=== PATIENT | male | born 1940 | race Caucasian/White ===

== ENCOUNTER 2021-03-12 08:00 | Outpatient (CLI) | payer MEDICARE, OTHER ==
--- NOTE | 2021-03-24 14:37 | XRAY Report ---
PROCEDURE: Chest 2 View X-Ray INDICATIONS: COUGH TECHNIQUE: 2 view(s) of the chest. COMPARISON: None. FINDINGS: Surgical changes and devices: None. Lungs and pleura: No pleural effusions or pneumothorax. Lungs are clear. Mediastinum: Mediastinal contours are normal. Heart size is mildly prominent. Bones and chest wall: No suspicious bony abnormalities. Soft tissues appear unremarkable. IMPRESSION: No acute pulmonary process. Reviewed by: Isabel Palma MD on 03/12/2021 3:13 PM PDT Approved by: Isabel Palma MD on 03/12/2021 3:13 PM PDT Station ID: [id number]
== END 2021-03-12 23:59 | disposition home or self-care (01) ==
LOC: DI.S 08:00
PROVIDERS: ATTEND Physician Assistant
DX: R05 Cough (principal); Z20.822 Contact with and (suspected) exposure to COVID-19
CPT/HCPCS: 71046; U0004

== ENCOUNTER 2021-03-12 11:53 | Outpatient (CLI) | payer MEDICARE, OTHER | END 2021-03-12 11:54 | disposition critical access hospital (66) | LOC: EMS 11:53 | DX: R07.89 Other chest pain (principal); R06.09 Other forms of dyspnea; R50.9 Fever, unspecified | CPT/HCPCS: A0425; A0429 ==

== ENCOUNTER 2021-03-12 12:27 | Observation (INO) | payer MEDICARE, OTHER ==
--- OUTSIDE RECORDS SUMMARY | 2021-03-12 13:12 | EXTERNAL MEDICAL SUMMARY RPT | Continuity of Care Document ---
:1940 Demographics Phone Unavailable Preferred Language Unknown Marital Status Unknown Jainism Affiliation Unknown Race Unknown Ethnic Group Unknown Author Organization [place] Address [address] [phone] Phone Care Team Providers Name Role Phone PA-C Unavailable Unavailable Medications date description facility [id number] [facility] [id number] [facility] [id number] [facility] Problems date description facility [id number] Unspecified chest pain [facility] [id number] Other chest pain [facility] [id number] Cough [facility] [id number] COVID19 Testing [facility] [id number] CHEST 2 VIEW [facility] [id number] Acute chest pain [facility] Procedures date description facility [id number] EKG Office Complete [facility] Vital Signs date measurement value source 20210312 temperature_standard 98.4 F 20210312 temperature_metric 36.89 C 20210312 respiration_rate 18 /min 20210312 height_standard 68 in 20210312 height_metric 172.72 cm [id number] heart_rate 87 /min [id number] BP_systolic 128 mm[Hg] [id number] BP_diastolic 76 mm[Hg]
--- NOTE | 2021-03-12 13:15 | XRAY Report ---
PROCEDURE: Chest 1 View X-Ray INDICATIONS: Chest Pain TECHNIQUE: One view of the chest was acquired. COMPARISON: Chest x-ray 03/12/2021 FINDINGS: Surgical changes and devices: None. Lungs and pleura: No pleural effusions or pneumothorax. Lungs are clear. Mediastinum: Mediastinal contours appear normal. Heart size is enlarged. Bones and chest wall: No suspicious bony lesions. Overlying soft tissues appear unremarkable. IMPRESSION: No acute pulmonary process. Reviewed by: Isabel Palma MD on 03/12/2021 1:14 PM PDT Approved by: Isabel Palma MD on 03/12/2021 1:14 PM PDT Station ID: [id number]
[2021-03-12 13:24] LABS: BASOPHILS % (AUTO) 0.4 %; EOSINOPHILS # (AUTO) 0.4 10^3/uL (0.0-0.7); EOSINOPHILS % (AUTO) 3.8 %; HCT - HEMATOCRIT 39.9 % (42.0-52.0); HGB - HEMOGLOBIN 13.9 g/dL (14.0-18.0); LYMPHOCYTES # (AUTO) 1.2 10^3/uL (1.5-3.5); LYMPHOCYTES % (AUTO) 11.6 %; MEAN CORPUSCULAR HEMOGLOBIN 32.1 pg (27.0-31.0); MEAN CORPUSCULAR HGB CONC 34.8 g/dL (32.0-36.0); MEAN CORPUSCULAR VOLUME 92.1 fL (80.0-94.0); MEAN PLATELET VOLUME 9.5 fL (7.4-11.4); NEUTROPHILS # (AUTO) 7.4 10^3/uL (1.5-6.6); NEUTROPHILS % (AUTO) 73.7 %; PLT - PLATELET COUNT 308 10^3/uL (130-450); RED BLOOD COUNT 4.33 10^6/uL (4.70-6.10); RED CELL DISTRIBUTION WIDTH 12.9 % (12.0-15.0); WHITE BLOOD COUNT 10.1 x10^3/uL (4.8-10.8)
--- NOTE | 2021-03-12 13:39 | ED Physician Documentation ---
PD HPI CHEST PAIN - Stated complaint Stated Complaint: CP/SOA - Chief complaint Chief Complaint: Cardiac - History obtained from History obtained from: Patient - Additional information Additional information: 80-year-old gentleman who is generally very healthy, he has a history of reflux with Schatzki's ring on omeprazole, hypothyroidism, and recent diagnosis of Crohn's disease by colonoscopy although asymptomatic but on mesalamine for same. For the last 2 weeks she has been lethargic and fatigued. He states that every afternoon around 430 he starts to get chills and then pretty reliably runs a fever up to 101. He thinks he is pretty much had a fever every day for the last 2 weeks. Starting about 3 days ago he developed some mild exertional dyspnea. And he has had some bandlike pain across the lower chest that is worse with exertion but also worse with bending over. He has not traveled recently. He has not had any sick contacts. He does have night sweats. He has a runny nose and mild cough but he thinks those are in line with the pollen going around right now. Review of Systems Ten Systems: 10 systems reviewed and negative Constitutional: reports: Fever, Chills, Myalgias, Fatigue Nose: reports: Rhinorrhea / runny nose Throat: denies: Sore throat Cardiac: reports: Chest pain / pressure. denies: Palpitations Respiratory: reports: Dyspnea, Cough PD PAST MEDICAL HISTORY - Past Medical History Past Medical History: Yes Cardiovascular: None Respiratory: None Endocrine/Autoimmune: None GI: GERD : None HEENT: None Psych: None Musculoskeletal: None Derm: None - Past Surgical History Past Surgical History: Yes General: Other Ortho: Knee replacement, Other HEENT: Cataracts, Tonsil/Adenoidectomy - Present Medications Home Medications: Ambulatory Orders Medication Instructions Recorded Confirmed Omeprazole [PriLOSEC] 10 mg PO DAILY 08/28/14 03/12/21 Levothyroxine [Synthroid] 50 mcg PO DAILY 03/12/21 03/12/21 Mesalamine [Lialda] 2.4 gm PO BID 03/12/21 03/12/21 - Allergies Allergies/Adverse Reactions: Allergies Allergy/AdvReac Type Severity Reaction Status Date / Time No Known Drug Allergies Allergy Verified 03/12/21 12:37 - Social History Does the pt smoke?: No Smoking Status: Never smoker Does the pt drink ETOH?: No Does the pt have substance abuse?: No - Immunizations Immunizations are current?: Yes PD ED PE NORMAL - Vitals Vital signs reviewed: Yes - General General: Alert and oriented X 3, No acute distress - HEENT HEENT: PERRL, EOMI - Neck Neck: Supple, no meningeal sign, No bony TTP - Cardiac Cardiac: RRR, No murmur - Respiratory Respiratory: No respiratory distress, Clear bilaterally - Abdomen Abdomen: Non tender - Back Back: No CVA TTP, No spinal TTP - Derm Derm: Normal color, Warm and dry - Extremities Extremities: No edema, No calf tenderness / cord - Neuro Neuro: Alert and oriented X 3, Normal speech Results - Vitals Vitals: Vital Signs - 24 hr 03/12/21 03/12/21 03/12/21 12:34 12:55 13:07 Temperature 37.2 C Heart Rate 92 82 90 Respiratory 16 21 24 Rate Blood Pressure 132/80 H 112/73 O2 Saturation 96 95 97 03/12/21 03/12/21 03/12/21 13:30 14:06 14:14 Temperature 36.8 C 36.7 C Heart Rate 85 82 80 Respiratory 16 22 21 Rate Blood Pressure 128/74 145/79 H 145/79 H O2 Saturation 97 97 96 03/12/21 03/12/21 03/12/21 14:30 14:46 15:00 Temperature 36.7 C Heart Rate 77 75 80 Respiratory 22 23 20 Rate Blood Pressure 129/76 129/76 127/84 H O2 Saturation 95 93 94 03/12/21 03/12/21 03/12/21 15:30 15:51 16:23 Temperature Heart Rate 74 77 75 Respiratory 16 19 23 Rate Blood Pressure 132/83 H 132/87 H 132/74 H O2 Saturation 96 95 96 Oxygen O2 Source Room air - EKG (time done) 1230 Rate: Rate (enter#) (86) Rhythm: Sinus tachycardia (w pac) [place]: Normal Intervals: Normal [place] QRS: Normal Ischemia: Normal ST segments Computer interpretation: Agree with computer - Labs Labs: Laboratory Tests 03/12/21 03/12/21 03/12/21 13:07 13:07 13:07 WBC 10.1 RBC 4.33 L Hgb 13.9 L Hct 39.9 L MCV 92.1 MCH 32.1 H MCHC 34.8 RDW 12.9 Plt Count 308 MPV 9.5 Neut # (Auto) 7.4 H Lymph # (Auto) 1.2 L [place] # (Auto) 1.0 Eos # (Auto) 0.4 Baso # (Auto) 0.0 Absolute Nucleated RBC 0.00 Nucleated RBC % 0.0 ESR Sodium 138 Potassium 3.8 Chloride 101 Carbon Dioxide 26 Anion Gap 11.0 BUN 15 Creatinine 0.9 Estimated GFR (MDRD) 81 L Glucose 119 H Lactic Acid Calcium 8.7 Total Bilirubin 1.3 H AST 15 ALT 26 Alkaline Phosphatase 75 Troponin I High Sens 60.8 H* C-Reactive Protein Total Protein 6.9 Albumin 3.8 Globulin 3.1 Albumin/Globulin Ratio 1.2 Lipase 22 Urine Color Urine Clarity Urine pH Ur Specific [place] Urine Protein Urine Glucose (UA) Urine Ketones Urine Occult Blood Urine Nitrite Urine Bilirubin Urine Urobilinogen Ur Leukocyte Esterase Urine RBC Urine WBC Ur Epithelial Cells Ur Squamous Epith Cells Urine Bacteria Urine Culture Comments Nasal Adenovirus (PCR) Nasal B. parapertussis DNA (PCR) Nasal Coronavir 229E PCR Nasal Coronavir HKU1 PCR Nasal Coronavir NL63 PCR Nasal Coronavir OC43 PCR Nasal Enterovir/Rhinovir PCR Nasal Influenza B PCR Nasal Influenza A PCR Nasal Parainfluen 1 PCR Nasal Parainfluen 2 PCR Nasal Parainfluen 3 PCR Nasal Parainfluen 4 PCR Nasal RSV (PCR) Nasal B.pertussis DNA PCR Nasal C.pneumoniae (PCR) Kp Human Metapneumo PCR Nasal M.pneumoniae (PCR) Nasal SARS-CoV-2 (PCR) 03/12/21 03/12/21 03/12/21 13:07 13:07 13:07 WBC RBC Hgb Hct MCV MCH MCHC RDW Plt Count MPV Neut # (Auto) Lymph # (Auto) [place] # (Auto) Eos # (Auto) Baso # (Auto) Absolute Nucleated RBC Nucleated RBC % ESR 23 H Sodium Potassium Chloride Carbon Dioxide Anion Gap BUN Creatinine Estimated GFR (MDRD) Glucose Lactic Acid 0.9 Calcium Total Bilirubin AST ALT Alkaline Phosphatase Troponin I High Sens C-Reactive Protein 13.2 H Total Protein Albumin Globulin Albumin/Globulin Ratio Lipase Urine Color Urine Clarity Urine pH Ur Specific [place] Urine Protein Urine Glucose (UA) Urine Ketones Urine Occult Blood Urine Nitrite Urine Bilirubin Urine Urobilinogen Ur Leukocyte Esterase Urine RBC Urine WBC Ur Epithelial Cells Ur Squamous Epith Cells Urine Bacteria Urine Culture Comments Nasal Adenovirus (PCR) Nasal B. parapertussis DNA (PCR) Nasal Coronavir 229E PCR Nasal Coronavir HKU1 PCR Nasal Coronavir NL63 PCR Nasal Coronavir OC43 PCR Nasal Enterovir/Rhinovir PCR Nasal Influenza B PCR Nasal Influenza A PCR Nasal Parainfluen 1 PCR Nasal Parainfluen 2 PCR Nasal Parainfluen 3 PCR Nasal Parainfluen 4 PCR Nasal RSV (PCR) Nasal B.pertussis DNA PCR Nasal C.pneumoniae (PCR) Kp Human Metapneumo PCR Nasal M.pneumoniae (PCR) Nasal SARS-CoV-2 (PCR) 03/12/21 03/12/21 03/12/21 13:42 13:42 15:02 WBC RBC Hgb Hct MCV MCH MCHC RDW Plt Count MPV Neut # (Auto) Lymph # (Auto) [place] # (Auto) Eos # (Auto) Baso # (Auto) Absolute Nucleated RBC Nucleated RBC % ESR Sodium Potassium Chloride Carbon Dioxide Anion Gap BUN Creatinine Estimated GFR (MDRD) Glucose Lactic Acid Calcium Total Bilirubin AST ALT Alkaline Phosphatase Troponin I High Sens 57.5 H* C-Reactive Protein Total Protein Albumin Globulin Albumin/Globulin Ratio Lipase Urine Color YELLOW Urine Clarity CLEAR Urine pH 6.0 Ur Specific [place] 1.010 Urine Protein NEGATIVE Urine Glucose (UA) NEGATIVE Urine Ketones NEGATIVE Urine Occult Blood NEGATIVE Urine Nitrite NEGATIVE Urine Bilirubin NEGATIVE Urine Urobilinogen 0.2 (NORMAL) Ur Leukocyte Esterase NEGATIVE Urine RBC None Seen Urine WBC 0-3 Ur Epithelial Cells RARE Transitional Ur Squamous Epith Cells NONE SEEN Urine Bacteria Rare Urine Culture Comments NOT INDICATED Nasal Adenovirus (PCR) NOT DETECTED Nasal B. parapertussis DNA (PCR) NOT DETECTED Nasal Coronavir 229E PCR NOT DETECTED Nasal Coronavir HKU1 PCR NOT DETECTED Nasal Coronavir NL63 PCR NOT DETECTED Nasal Coronavir OC43 PCR NOT DETECTED Nasal Enterovir/Rhinovir PCR NOT DETECTED Nasal Influenza B PCR NOT DETECTED Nasal Influenza A PCR NOT DETECTED Nasal Parainfluen 1 PCR NOT DETECTED Nasal Parainfluen 2 PCR NOT DETECTED Nasal Parainfluen 3 PCR NOT DETECTED Nasal Parainfluen 4 PCR NOT DETECTED Nasal RSV (PCR) NOT DETECTED Nasal B.pertussis DNA PCR NOT DETECTED Nasal C.pneumoniae (PCR) NOT DETECTED Kp Human Metapneumo PCR NOT DETECTED Nasal M.pneumoniae (PCR) NOT DETECTED Nasal SARS-CoV-2 (PCR) NOT DETECTED - Rads (name of study) 1v cxr Radiology: EMP read contemporaneously (NAD) CT chest abdomen and pelvis Radiology: EMP read contemporaneously (CAD, abdominal wall hernias without evidence of complication) PD MEDICAL DECISION MAKING - ED course ED course: This 80-year-old gentleman has 2 weeks worth of daily low-grade fevers and some other nonspecific symptoms but the last few days has had atypical chest pain. His EKG is nonischemic but his troponin is elevated, on the second check 2 hours later was about the same, slightly down. Given the fevers of unknown origin a CT of the chest abdomen pelvis was done with above findings. Unclear if this record represents primary cardiac insult versus Type II ischemia although he does not seem to ill. Dr. Valenciasef agrees to observe and stress tomorrow. Departure - Departure Disposition: ED Place in Observation Clinical Impression: FUO (fever of unknown origin), Elevated troponin CAD (coronary artery disease) Qualifiers: Coronary Disease-Associated Artery/Lesion type: [place] artery [place] vs. transplanted heart: [place] heart Associated angina: without angina Qualified Code(s): I25.10 - Atherosclerotic heart disease of [place] coronary artery without angina pectoris Chest pain Qualifiers: Chest pain type: unspecified Qualified Code(s): R07.9 - Chest pain, unspecified Condition: Fair
[2021-03-12 13:41] LABS: ALBUMIN 3.8 g/dL (3.2-5.5); ALBUMIN/GLOBULIN RATIO 1.2 (1.0-2.2); BILIRUBIN,TOTAL 1.3 mg/dL (0.2-1.0); CALCIUM 8.7 mg/dL (8.5-10.3); CREATININE 0.9 mg/dL (0.6-1.2); POTASSIUM 3.8 mmol/L (3.5-5.0); TOTAL PROTEIN 6.9 g/dL (6.7-8.2)
[2021-03-12] MEDS ORDERED: IOPAMIDOL-300 100 ML VIAL ONE (13:42)
[2021-03-12 13:50] LABS: BILIRUBIN,URINE NEGATIVE (NEGATIVE); GLUCOSE, URINE (UA) NEGATIVE (NEGATIVE); KETONES,URINE (UA) NEGATIVE (NEGATIVE); LEUKOCYTE ESTERASE, URINE NEGATIVE (NEGATIVE); NITRITE,URINE NEGATIVE (NEGATIVE); OCCULT BLOOD,URINE NEGATIVE (NEGATIVE); PROTEIN,URINE NEGATIVE (NEGATIVE); UROBILINOGEN,URINE 0.2 (NORMAL) E.U./dL (NORMAL)
[2021-03-12 13:52] LABS: CLARITY,URINE CLEAR (CLEAR)
[2021-03-12 13:58] LABS: BACTERIA,URINE Rare /HPF (None Seen); EPITHELIAL CELLS,UR RARE Transitional /HPF (<= Few); RBC,URINE None Seen /HPF (0-5); SQUAMOUS EPITHELIAL CELL,UR NONE SEEN (<= Few); WBC,URINE 0-3 /HPF (0-3)
[2021-03-12] MEDS ORDERED: IOPAMIDOL-300 100 ML VIAL IVP ONE (14:00)
--- NOTE | 2021-03-12 14:15 | CT Report ---
PROCEDURE: Abdomen/Pelvis W INDICATIONS: FUO IV only CONTRAST: IV CONTRAST: Isovue 300 ml: 100 PO CONTRAST: *NO PO CONTRAST TECHNIQUE: After the administration of IV contrast, 5 mm thick sections acquired from the diaphragms to the symp hysis. 5 mm thick coronal and sagittal reformats were acquired. For radiation dose reduction, the f ollowing was used: automated exposure control, adjustment of mA and/or kV according to patient size. COMPARISON: None. FINDINGS: Image quality: Excellent. ABDOMEN: Lung bases: Mild bibasilar dependent scarring versus atelectasis is present. Heart size is normal. Solid organs: Liver and spleen are normal in size and enhancement. Gallbladder is within normal godfrey its Biliary system is non dilated. Pancreas enhances normally. No adrenal nodules. Kidneys demons trate normal size and enhancement, without hydronephrosis. Peritoneum and bowel: Bowel loops demonstrate normal wall thickness and caliber. Normal appendix. N o free fluid or air. Nodes and vessels: No retroperitoneal or mesenteric adenopathy by size criteria. Aorta and inferior vena cava are normal in size. Miscellaneous: Right anterior abdominal wall hernia containing the anterior mesenteric wall of mid tr ansverse colon measuring 27 mm diameter. Left anterior abdominal wall hernia containing a loop of sma ll bowel, measuring roughly 40 mm diameter. Supraumbilical hernia containing mesenteric fat as well a s the antimesenteric wall of loops of small bowel measuring roughly 35 mm diameter. There is no evide nce of associated bowel strangulation, nor obstruction. PELVIS: Genitourinary: Bladder wall thickness is normal. Miscellaneous: No inguinal hernias or adenopathy. Bones: No suspicious bony lesions. No vertebral body compression fractures. IMPRESSION: 1. Bowel-containing anterior abdominal wall hernias with no evidence of associated strangulation, nor obstruction. 2. Normal appendix. Reviewed by: Kath Brantley MD on 03/12/2021 2:13 PM PDT Approved by: Kath Brantley MD on 03/12/2021 2:13 PM PDT Station ID: [id number]
--- NOTE | 2021-03-12 14:16 | CT Report ---
PROCEDURE: CHEST W INDICATIONS: FUO, CONTRAST: IV CONTRAST: Isovue 300 ml: 100 PO CONTRAST: *NO PO CONTRAST TECHNIQUE: After the administration of intravenous contrast, 5 mm thick sections acquired from the pulmonary api lucian to the posterior costophrenic angles. 7 mm thick coronal MIP reformats were acquired. For radia tion dose reduction, the following was used: automated exposure control, adjustment of mA and/or kV according to patient size. COMPARISON: Chest x-ray dated 03/12/2021 FINDINGS: Image quality: Excellent. Lungs and pleura: No acute air space opacities. Mild dependent bibasilar scarring versus atelectasi s. No pleural effusions or pneumothorax. Central and peripheral airways are patent and normal in madhav iber. Mediastinum: Heart size is normal. Severe apical scarring calcification of the coronary vasculature. No pericardial effusion. No mediastinal or hilar adenopathy by size criteria. Thoracic aorta and c entral pulmonary arteries are normal in size. Esophagus is normal in caliber. No hiatal hernia. Bones and chest wall: No suspicious bony lesions. No vertebral body compression fractures. No axil juju or supraclavicular adenopathy by size criteria. Thyroid gland is grossly unremarkable. Abdomen: Visualized upper abdominal solid organs appear normal. Upper abdominal bowel loops are nor mal in caliber. IMPRESSION: 1. No acute process. 2. Coronary artery disease. Reviewed by: Kath Brantley MD on 03/12/2021 2:15 PM PDT Approved by: Kath Brantley MD on 03/12/2021 2:15 PM PDT Station ID: [id number]
[2021-03-12 14:44] LABS: B. PARAPERTUSSIS- RESP PCR PAN NOT DETECTED; B. PERTUSSIS- RESP PCR PANEL NOT DETECTED; C. PNEUMONIAE- RESP PCR PANEL NOT DETECTED; CORONAVIRUS 229E-RESP PCR NOT DETECTED; CORONAVIRUS HKU1-RESP PCR NOT DETECTED; CORONAVIRUS NL63-RESP PCR NOT DETECTED; CORONAVIRUS OC43-RESP PCR NOT DETECTED; HUMAN METAPNEUMOVIRUS NOT DETECTED; INFLUENZA A- RESP PCR PANEL NOT DETECTED; INFLUENZA B - RESP PCR PANEL NOT DETECTED; M. PNEUMONIAE- RESP PCR PANEL NOT DETECTED; PARAINFLUENZA VIRUS 1 NOT DETECTED; PARAINFLUENZA VIRUS 2 NOT DETECTED; PARAINFLUENZA VIRUS 3 NOT DETECTED; PARAINFLUENZA VIRUS 4 NOT DETECTED; RHINOVIRUS/ENTEROVIRUS NOT DETECTED; RSV- RESP PCR PANEL NOT DETECTED; SARS-CoV-2 -RESP PCR PANEL NOT DETECTED
[2021-03-12] MEDS ORDERED: ASPIRIN EC 325 MG TABLET PO STA (15:02)
[2021-03-12] MEDS ORDERED: ONDANSETRON 4 MG/2 ML VIAL IVP PRN (17:01)
[2021-03-12] MEDS ORDERED: SODIUM CHLORIDE FLUSH 0.9% 10 ML SYRINGE IVP PRN (17:01)
[2021-03-12] MEDS ORDERED: MORPHINE 2 MG/ML CARPUJECT IVP PRN (17:01)
[2021-03-12] MEDS ORDERED: ACETAMINOPHEN 325 MG TABLET PO PRN (17:01)
[2021-03-12] MEDS ORDERED: OMEPRAZOLE 10 MG PO SCH (17:14)
--- OUTSIDE RECORDS SUMMARY | 2021-03-12 17:17 | EXTERNAL MEDICAL SUMMARY RPT | Continuity of Care Document ---
:1940 Demographics Phone Unavailable Preferred Language Unknown Marital Status Unknown Baptism Affiliation Unknown Race Unknown Ethnic Group Unknown Author Organization [place] Address [address] [phone] Phone Care Team Providers Name Role Phone PA-C Unavailable Unavailable Medications date description facility [id number] [facility] [id number] [facility] [phone] [facility] Problems date description facility [id number] Unspecified chest pain [facility] [phone] Other chest pain [facility] [id number] Cough [facility] [phone] COVID19 Testing [facility] [id number] CHEST 2 VIEW [facility] [phone] Acute chest pain [facility] Procedures date description facility [id number] EKG Office Complete [facility] Vital Signs date measurement value source 20210312 temperature_standard 98.4 F 20210312 temperature_metric 36.89 C 20210312 respiration_rate 18 /min 20210312 height_standard 68 in 20210312 height_metric 172.72 cm [id number] heart_rate 87 /min [id number] BP_systolic 128 mm[Hg] [id number] BP_diastolic 76 mm[Hg]
--- NOTE | 2021-03-12 17:27 | HISTORY & PHYSICAL EXAMINATION ---
Chief Complaint - Chief Complaint Chief Complaint: chest pain History of Present Illness - Admitted From Admitted From:: ER - History Obtained From Records Reviewed: [facility] History obtained from: pt - History of Present Illness HPI Comment/Other: This is a 80-year-old male with a past medical history significant for GERD with Schatzki's ring, hypothyroidismwhoand and recent diagnosis of Crohn's disease although he was asymptomatic but on mesalamine otherwise pt is generally healthy who present ER complain of chest pain. Patient was sent from [facility]. pt complain of chest pain for 2 and half days. pt report his chest pain located at bilateral low rib cage. pt is dull sensation at 2/10 pain scale. pt also report he feel shortness of breath when he had chest pain. He denies other location chest pain, denies nausea, vomiting, diaphoresis. pt report his chest pain last for 2 and half day with intermittent frequency. Pt also report in the last two weeks, almost every afternoon around 430 he starts to get chills and then had fever up to 101. But today he did not have in ER. After fever at afternoon, he became night sweats. He "honestly report to you, Dr. Krause, my GI doctor asked me to take 4 mesalamine but actually I only take 2 pills, because I do not want to take too much medications." Lab test in ER show pt had slight elevated troponin at 60 then tread down to 57. EKG reveals Sinus rhythm without ST variation. CXR is unremarkable. CT of chest reveals No acute process, coronary artery disease. CT of abdomen reveals Anterior abdominal wall hernia with no evidence of associated strangulation or obstruction. Medical team was consulted focus on pt's chest pain evaluation. Discussed the care goal with the patient, patient requests full code. History - Past Medical History Cardiovascular: reports: None Respiratory: reports: None Endocrine/Autoimmune: reports: None GI: reports: GERD : reports: None HEENT: reports: None Psych: reports: None Musculoskeletal: reports: None Derm: reports: None MRSA Hx?: No - Past Surgical History General: reports: Other Ortho: reports: Knee replacement, Other HEENT: reports: Cataracts, Tonsil/Adenoidectomy - Family & Social History Family History: Mother: , Father: Family History Comment/Other: Report his father from stroke at age 63. His mother is a heavy cigarette smoker and severe COPD and from heart attack at age 70 Social History Notes: Patient denies history of cigarette smoking, he report social drinking without causing problem, denies drug issue. He is living with his at [place]. Meds/Allgy - Home Medications Home Medications: Ambulatory Orders Medication Instructions Recorded Confirmed Omeprazole [PriLOSEC] 10 mg PO DAILY 08/28/14 03/12/21 Levothyroxine [Synthroid] 50 mcg PO DAILY 03/12/21 03/12/21 Mesalamine [Lialda] 2.4 gm PO BID 03/12/21 03/12/21 - Allergies Allergies/Adverse Reactions: Allergies Allergy/AdvReac Type Severity Reaction Status Date / Time No Known Drug Allergies Allergy Verified 03/12/21 12:37 Review of Systems - Constitutional Constitutional: reports: Fever, Chills, Night sweats. denies: Malaise, Weakness, Poor appetite, Diaphoresis - Eyes Eyes: denies: Pain, Blurred vision, Field loss, Vision loss - Ears, Nose & Throat Ears, Nose & Throat: denies: Ear pain, Tinnitus, Nosebleeds - Cardiovascular Cariovascular: reports: Chest pain, Exertional dyspnea. denies: Irregular heart rate, Palpitations, Edema, Lightheadedness, Syncope - Respiratory Respiratory: reports: SOB with exertion. denies: Cough, Sputum production, Wheezing, Snoring, Hemoptysis, SOB at rest - Gastrointestinal Gastrointestinal: denies: Abdominal pain, Constipation, Diarrhea, Rectal bleeding, Black stools, Bloody stools, Nausea, Vomiting - Genitourinary Genitourinary: denies: Dysuria, Urgency, Incontinence - Musculoskeletal Musculoskeletal: denies: Muscle aches, Limited range of motion, Muscle weakness - Integumentary Integumentary: denies: Rash, Lesions, Lumps - Neurological Neurological: denies: General weakness, Focal weakness, Headache, Dizziness, Numbness, Pre-existing deficit, Abnormal gait, Seizures, Incoordination, Slurred speech - Psychiatric Psychiatric: denies: Depression, Suicidal - Endocrine Endocrine: denies: Polyuria - Hematologic/Lymphatic Hematologic/Lymphatic: denies: Anemia, Blood clots Prior Level of Functionality: Patient is totally function independent Exam - Vital Signs Vital Signs: Vital Signs x48h Temp Pulse Resp BP Pulse Ox 03/12/21 17:00 36.6 C 83 18 125/73 96 03/12/21 16:30 36.6 C 85 16 125/66 95 03/12/21 16:23 75 23 132/74 H 96 03/12/21 15:51 77 19 132/87 H 95 03/12/21 15:30 74 16 132/83 H 96 03/12/21 15:00 80 20 127/84 H 94 03/12/21 14:46 75 23 129/76 93 03/12/21 14:30 36.7 C 77 22 129/76 95 03/12/21 14:14 80 21 145/79 H 96 03/12/21 14:06 36.7 C 82 22 145/79 H 97 03/12/21 13:30 36.8 C 85 16 128/74 97 03/12/21 13:07 90 24 112/73 97 03/12/21 12:55 82 21 95 03/12/21 12:34 37.2 C 92 16 132/80 H 96 - Physical Exam General Appearance: positive: No acute distress, Alert. negative: Lethargic Eyes Bilateral: positive: Normal inspection, PERRL, No lid inflammation ENT: positive: ENT inspection nml, No signs of dehydration. negative: Purulent nasal drainage Neck: positive: Nml inspection, Trachea midline. negative: Thyromegaly, Tracheal deviation Respiratory: positive: Chest non-tender, No respiratory distress. negative: Wheezes, Rales, Rhonchi Cardiovascular: positive: Regular rate & rhythm, No murmur. negative: Tac hycardia, Bradycardia, Systolic murmur, Diastolic murmur Peripheral Pulses: positive: 2+ Abdomen: positive: Non-tender, Nml bowel sounds, No distention. negative: Tenderness Back: positive: Nml inspection Skin: positive: Color nml, Warm, Dry. negative: Cyanosis, Diaphoresis Extremities: positive: Non-tender, Full ROM, Nml appearance. negative: Calf tenderness Neurologic/Psychiatric: positive: Oriented x3, Motor nml, Sensation nml, Mood/affect nml. negative: Weakness, Sensory loss, Facial droop, Slurred/abnml speech, Depressed mood/affect Sepsis Event Note (H) - Evaluation Current Stage of Sepsis: Ruled out Conclusion/Plan - Problem List (1) Chest pain Conclusion/Plan: Patient reported he had intermittent bilateral chest rib cage chest pain for 2- 1/2 days associated with shortness of breathing. pt had slight elevated troponin, repeated troponin is slight reduced. pt report he has no cardiac hx and first time he had chest pain. Patient was already 325 mg aspirin in the ER. we will check serial troponin, daily aspirin 81 mg now, check lipid panel, Morphine and nitro SL PRN, and plan to have stress test for pt on tomorrow, continue tele monitor pt. Qualifiers: Chest pain type: unspecified Qualified Code(s): R07.9 - Chest pain, unspecified (2) FUO (fever of unknown origin) Conclusion/Plan: pt has no fever on today, CT of chest and abdomen/pelvis, UA, CXR fail to reveal infection resource. one possible etiology from his recently diagnosis of Crohn's disease and pt had elevated ESR and CRP as well or less likely from neoplasm. pt had normal WBC and had no fever on today. Covid 19 is negative as well, and Patient is hemodynamically stable. we will vital signal closely monitor pt (3) Crohn disease Conclusion/Plan: pt was recently diagnosis with Crohn disease and pt was already given mesalamine. pt denies abdominal pain, nausea or vomiting or diarrhea or GI bleeding. we will resume pt home meds, advise pt closely followup with his GI, specially for his FUO. (4) Hypothyroidism Conclusion/Plan: will check TSH and resume home synthroid. (5) GERD (gastroesophageal reflux disease) Conclusion/Plan: stable, will resume home PPI. - Lab Results Fish Bones: 03/12/21 13:07 03/12/21 13:07 Core Measures - Anticipated LOS I expect patient to be DC'd or transferred within 96 hours.: Yes - DVT/VTE - Prophylaxis VTE/DVT Device ordered at admit?: Yes VTE/DVT Prophylaxis med ordered at admit?: Yes
[2021-03-12] MEDS ORDERED: NITROGLYCERIN SL 0.4 MG TABLET SL PRN (18:00)
[2021-03-12] MEDS: MESALAMINE 1.2 GM PO SCH (22:06)
[2021-03-13 04:58] LABS: BASOPHILS # (AUTO) 0.1 10^3/uL (0.0-0.1); EOSINOPHILS # (AUTO) 0.6 10^3/uL (0.0-0.7); EOSINOPHILS % (AUTO) 7.9 %; HCT - HEMATOCRIT 38.7 % (42.0-52.0); HGB - HEMOGLOBIN 13.1 g/dL (14.0-18.0); LYMPHOCYTES # (AUTO) 1.3 10^3/uL (1.5-3.5); LYMPHOCYTES % (AUTO) 17.8 %; MEAN CORPUSCULAR HEMOGLOBIN 31.3 pg (27.0-31.0); MEAN CORPUSCULAR HGB CONC 33.9 g/dL (32.0-36.0); MEAN CORPUSCULAR VOLUME 92.6 fL (80.0-94.0); MEAN PLATELET VOLUME 9.4 fL (7.4-11.4); MONOCYTES # (AUTO) 0.9 10^3/uL (0.0-1.0); MONOCYTES % (AUTO) 12.6 %; NEUTROPHILS # (AUTO) 4.4 10^3/uL (1.5-6.6); NEUTROPHILS % (AUTO) 60.2 %; PLT - PLATELET COUNT 296 10^3/uL (130-450); RED BLOOD COUNT 4.18 10^6/uL (4.70-6.10); RED CELL DISTRIBUTION WIDTH 12.9 % (12.0-15.0); WHITE BLOOD COUNT 7.4 x10^3/uL (4.8-10.8)
[2021-03-13] MEDS: SODIUM CHLORIDE FLUSH 0.9% 10 ML SYRINGE IVP SCH ×2 (05:18→08:04)
[2021-03-13 05:23] LABS: BUN - BLOOD UREA NITROGEN 15 mg/dL (6-20); CALCIUM 8.7 mg/dL (8.5-10.3); CARBON DIOXIDE - CO2 25 mmol/L (21-32); CHLORIDE 105 mmol/L (101-111); CHOL/HDL RATIO 5.8 (<5.0); CHOLESTEROL 144 mg/dL; CREATININE 0.8 mg/dL (0.6-1.2); GFR - MDRD 93 (>89); GLUCOSE 119 mg/dL (70-100); HDL CHOLESTEROL 25 mg/dL; LDL CHOLESTEROL,CALCULATED 98 mg/dL; LDL/HDL RATIO 3.9 (<3.6); POTASSIUM 4.1 mmol/L (3.5-5.0); SODIUM 139 mmol/L (135-145); TRIGLYCERIDES 106 mg/dL; VLDL CHOLESTEROL 21 mg/dL
[2021-03-13] MEDS ORDERED: LEVOTHYROXINE 25 MCG TABLET PO SCH (07:00)
--- NOTE | 2021-03-13 07:26 | PHARMACY PROGRESS NOTE ---
- Best Possible Medication History Admit Date and Time: 03/12/21 1701 Processed by: Nursing Medication History completed: Yes As the person ultimately responsible for medication therapy, providers are able to order a medication from an existing home medication list in [facility] via the "Reconcile Routine" prior to Confirmation of that medication by learning support specialist. Such practice is discouraged except when the physician, in their clinical judgment, deems that a medical need exists for a medication without regard to previous use.
[2021-03-13] MEDS: MESALAMINE 1.2 GM PO SCH (08:04)
[2021-03-13] MEDS ORDERED: PANTOPRAZOLE 40 MG TABLET PO SCH (09:00)
[2021-03-13] MEDS ORDERED: ENOXAPARIN 40 MG/0.4 ML SYRINGE SUBQ SCH (09:00)
[2021-03-13] MEDS ORDERED: ASPIRIN CHEW 81 MG TABLET PO SCH (09:00)
[2021-03-13 15:35] VITALS: BP 118/68
--- NOTE | 2021-03-13 16:20 | Nuclear Medicine Report ---
PROCEDURE: Rest and pharmacological stress myocardial perfusion SPECT with gated imaging and ejection fraction INDICATIONS: chest pain RADIOPHARMACEUTICAL: 12.2 mCi Tc-99m Myoview IV at rest and 43.0 mCi Tc-99m Myoview IV at peak exerc ise. [id number] was performed. TECHNIQUE: Radiopharmaceutical was injected at peak stress test, and also at rest. SPECT images wer e obtained. SPECT myocardial perfusion images were displayed in short axis, horizontal long axis, an d vertical long axis views. Gated images were reviewed using AutoQUANT software. COMPARISON: None available. FINDINGS: Raw data: There is good myocardial labeling by radiotracer. No significant motion artifacts. Lung- to-heart ratio is 0.34 (normal is less than 0.46 for tetrafosmin tracer). Left ventricle function: Gated images demonstrate normal left ventricle wall thickening. No segment al wall motion abnormality. No transient ischemic dilation; TID is 1.03 (normal less than 1.30). Th e left ventricle resting end-diastolic volume is normal. Left ventricle stress ejection fraction is 59%; normal values are above 45%. Myocardial perfusion: There is normal distribution of activity in the left and right ventricular sweetie cardium. No fixed or reversible perfusion defects. IMPRESSION: 1. Normal myocardial perfusion images. No perfusion defect to suggest myocardial ischemia or infarct. 2. Normal left ventricular volume and systolic function. 3. Please correlate with stress EKG result. PQRS ATTESTATIONS: Measure 322 - Is this imaging test primarily performed on a low-risk surgery patient for preoperative evaluation within 30 days preceding their low-risk non-cardiac surgery? Low-risk surgery is defined as cardiac or myocardial infarction less than 1%, including (but not limited to) endoscopic pr ocedures, superficial procedures, cataract surgery, and excisional breast surgery: Answer: No Measure 323 - Is this imaging test performed primarily for the monitoring of an asymptomatic patient who had percutaneous coronary intervention on the visit date or within 2 years of the visit date? An swer: No Measure 324 - Is this imaging test performed primarily for the initial detection and risk assessment on an asymptomatic, low coronary heart disease patient? Low CHD risk definition = clinicians should consider the maximum number of available patient factors used to estimate risk based on [place] (A TP III criteria), typically age, gender, diabetes, smoking status, and use of blood pressure medicati on, and integrate age appropriate estimates for missing elements, such as LDL or standard blood press ure. Answer: No Reviewed by: Margie Ng MD on 03/13/2021 4:18 PM PDT Approved by: Margie Ng MD on 03/13/2021 4:18 PM PDT Station ID: [id number]
--- NOTE | 2021-03-13 16:31 | Discharge Plan ---
Discharge Plan Problem Reviewed?: Yes Disposition: Home, Self Care Condition: Stable Diet: Regular Activity Restrictions: Activity as Tolerated Shower Restrictions: No (fall precaution) Instruction Topics: ED Chest Pain Atypical Unkn Cause Health Concerns: chest pain Plan of Treatment: your stress test is normal, and you have no more chest pain. you may followup with clinical nurse leader as out-pt and have ECHO study as well. Care Goals: stabilization and improvement of your medical conditions Assessment: discussed the care plan with you, answered your questions, you understand Additional Instructions or Follow Up instructions: you may followup with your PCP in one to two weeks, followup with clinical nurse leader as out-pt and have ECHO study as out-pt. You may followup with GI doctor as your schedule. Should your symptoms return or worsen, you may present ER or call 911 for help. No Smoking: If you smoke, Please STOP! Call for help. Follow-up with: ADRIANNA GIBBONS MD [Primary Care Provider] -
--- NOTE | 2021-03-13 16:35 | DISCHARGE SUMMARY ---
Discharge Summary Admit Date: 03/12/21 Discharge Date: 03/13/21 Discharging Provider: Kalyan Christian Primary Care Provider: Frank Garnica Condition at Discharge: Stable Discharge Disposition: 01 Home, Self Care Discharge Facility Name: home - DIAGNOSES Discharge Diagnoses with Status of Each Condition: (1) Chest pain pt has no more chest pain. stress test is normal. pt may followup with compounder sterile products as out-pt and have ECHO study as well. (2) FUO (fever of unknown origin) no more fever on yesterday and today. pt may followup with his GI doctor as out- pt if he continue have this issue (3) Crohn disease stable, pt may followup with his GI doctor as out-pt (4) Hypothyroidism TSH is normal, resume home meds (5) GERD (gastroesophageal reflux disease) stable, resume home PPI - HPI History of Present Illness: This is a 80-year-old male with a past medical history significant for GERD with Schatzki's ring, hypothyroidismwhoand and recent diagnosis of Crohn's disease although he was asymptomatic but on mesalamine otherwise pt is generally healthy who present ER complain of chest pain. Patient was sent from [facility]. pt complain of chest pain for 2 and half days. pt report his chest pain located at bilateral low rib cage. pt is dull sensation at 2/10 pain scale. pt also report he feel shortness of breath when he had chest pain. He denies other location chest pain, denies nausea, vomiting, diaphoresis. pt report his chest pain last for 2 and half day with intermittent frequency. Pt also report in the last two weeks, almost every afternoon around 430 he starts to get chills and then had fever up to 101. But today he did not have in ER. After fever at afternoon, he became night sweats. He "honestly report to you, Dr. Krause, my GI doctor asked me to take 4 mesalamine but actually I only take 2 pills, because I do not want to take too much medications." Lab test in ER show pt had slight elevated troponin at 60 then tread down to 57. EKG reveals Sinus rhythm without ST variation. CXR is unremarkable. CT of chest reveals No acute process, coronary artery disease. CT of abdomen reveals Anterior abdominal wall hernia with no evidence of associated strangulation or obstruction. Medical team was consulted focus on pt's chest pain evaluation. Discussed the care goal with the patient, patient requests full code. - HOSPITAL COURSE Hospital Course: Patient was admitted for bilaterally rib cage pain. pt had stress test done at hospital which was normal. pt's chest pain was resolved as well. pt had slight elevated troponin but reduced and became flat. EKG did not indicate acute ischemic change. pt may followup with compounder sterile products as out-pt and have ECHO done. pt agreed this care plan. pt is d/c as Hemodynamically stable condition - ALLERGIES Allergies/Adverse Reactions: Allergies Allergy/AdvReac Type Severity Reaction Status Date / Time No Known Drug Allergies Allergy Verified 03/12/21 12:37 - MEDICATIONS Home Medications: Ambulatory Orders Medication Instructions Recorded Confirmed Omeprazole [PriLOSEC] 10 mg PO DAILY 08/28/14 03/12/21 Mesalamine [Lialda] 2.4 gm PO BID 03/12/21 03/12/21 Levothyroxine Sodium [Synthroid] 50 mcg PO QDAC 03/13/21 03/13/21 - PHYSICAL EXAM AT DISCHARGE General Appearance: positive: No acute distress, Alert. negative: Lethargic Eyes Bilateral: positive: Normal inspection, PERRL, No lid inflammation ENT: positive: ENT inspection nml, No signs of dehydration. negative: Purulent nasal drainage Neck: positive: Nml inspection, Trachea midline. negative: Thyromegaly, Tracheal deviation Respiratory: positive: Chest non-tender, No respiratory distress. negative: Wheezes, Rales, Rhonchi Cardiovascular: positive: Regular rate & rhythm, No murmur. negative: Tachycardia, Bradycardia, Systolic murmur, Diastolic murmur Peripheral Pulses: positive: 2+ Abdomen: positive: Non-tender, Nml bowel sounds, No distention. negative: Tenderness Back: positive: Nml inspection Skin: positive: Color nml, Warm, Dry. negative: Cyanosis Extremities: positive: Non-tender, Full ROM, Nml appearance. negative: Calf tenderness Neurologic/Psychiatric: positive: Oriented x3, Motor nml, Sensation nml, Mood/affect nml. negative: Weakness, Sensory loss, Facial droop, Slurred/abnml speech, Depressed mood/affect - LABS Result Diagrams: 03/13/21 04:30 03/13/21 04:30 - SEPSIS Current Stage of Sepsis: Ruled out - FOLLOW UP Follow Up: your stress test is normal, and you have no more chest pain. you may followup with compounder sterile products as out-pt and have ECHO study as well. you may followup with your PCP in one to two weeks, followup with comp[facility] sterile products as out-pt and have ECHO study as out-pt. You may followup with GI doctor as your schedule. Should your symptoms return or worsen, you may present ER or call 911 for help. - TIME SPENT Time Spent in Discharge (Minutes): 30
--- NOTE | 2021-03-13 23:22 | CARDIAC PROCEDURE NOTE ---
Stress Test Report Service Date: 03/13/21 Service Time: 10:50 Ordering Provider: VALERIE Bray Indication for Test: chest pain Significant Medical History: 80-year-old male with a past medical history significant for GERD with Schatzki's ring, hypothyroidismwhoand and recent diagnosis of Crohn's disease although he was asymptomatic but on mesalamine otherwise pt is generally healthy who present ER complain of chest pain. Patient was sent from [facility]. pt complain of chest pain for 2 and half days. pt report his chest pain located at bilateral low rib cage. pt is dull sensation at 2/10 pain scale. pt also report he feel shortness of breath when he had chest pain. He denies other location chest pain, denies nausea, vomiting, diaphoresis. pt report his chest pain last for 2 and half day with intermittent frequency. Pt also report in the last two weeks, almost every afternoon around 430 he starts to get chills and then had fever up to 101. But today he did not have in ER. After fever at afternoon, he became night sweats. He "honestly report to you, Dr. Krause, my GI doctor asked me to take 4 mesalamine but actually I only take 2 pills, because I do not want to take too much medications." Lab test in ER show pt had slight elevated troponin at 60 then tread down to 57. EKG reveals Sinus rhythm without ST variation. CXR is unremarkable. CT of chest reveals No acute process, coronary artery disease. CT of abdomen reveals Anterior abdominal wall hernia with no evidence of associated strangulation or obstruction. Medical team was consulted focus on pt's chest pain evaluation. Discussed the care goal with the patient, patient requests full code. Per the patient's history, he walks his dogs twice a day. Long distance walks. He can go uphill as long as is done slowly. If he walks too fast he will get dyspnea on exertion but no chest pain, edema, orthopnea. His cardiovascular endurance is unchanged for the last several years Cardiac Risk Factors: Male sex, family history. He is not a diabetic, nor does he smoke, nor received have hyperlipidemia Type of Stress Test: ETT with Myocardial Perfusion Imaging Procedure: After describing this stress test, risk, possible effects, the patient consented. He states that this is not his first stress test and has had numerous in the past unrelated to this current complaint. The patient performed a treadmill exercise using a Henry protocol, completing 6 minutes and 29 seconds and completing an estimated workload of 7.81 metabolic equivalents. The test was terminated due to fatigue and shortness of breath but he denied any chest pain. His baseline heart rate was 71 bpm, with resting blood pressure 119/79. His heart rate increased to 158 which was 114% of maximum predicted heart rate. His maximum blood pressure increase was to 242/86. This is an exaggerated hypertensive response. The patient did not develop any symptoms other than fatigue, shortness of breath. The resting EKG had normal sinus rhythm with an occasional PAC. He had ST elevation that was nondiagnostic in lead II, 3, V2 through V6. With stress, the ST elevation resolved. Stress was without chest pain. However 3 beats to 4 beats of A. fib occurred, sinus arrhythmia occurred, and numerous PVCs occurred during stress. All of these resolved with rest and he was back to baseline within 5 minutes. Myocardial perfusion imaging was performed at rest with Myoview. At peak exercise the patient was injected with his second Myoview and exercise was continued for 1 minute. Under separate interpretation and dictation done by [facility] radiology, the rest and pharmacologic stress myocardial perfusion SPECT with gated imaging had a normal myocardial perfusion image. No perfusion defect to suggest myocardial ischemia or infarct. Normal left ventricular volume and systolic function. Ejection fraction calculated 59%. Summary: This was a good study with excellent metabolic equivalents generated. Exaggerated hypertensive response and ectopy during peak stress should be referred to cardiology for further evaluation and opinion. With regards to evidence of coronary ischemia, none was found on this study. However, the arrhythmias are concerning.
== END 2021-03-13 18:00 | disposition home or self-care (01) ==
LOC: EDUNIT# → ED 12:27 → MS2 17:01
PROVIDERS: ADMIT Nurse Practitioner Gerontology; ATTEND Nurse Practitioner Gerontology
DX: R07.89 Other chest pain (principal); R50.9 Fever, unspecified; K50.90 Crohn's disease, unspecified, without complications; E03.9 Hypothyroidism, unspecified; K21.9 Gastro-esophageal reflux disease without esophagitis; Z79.899 Other long term (current) drug therapy; Z20.822 Contact with and (suspected) exposure to COVID-19; R05 Cough
CPT/HCPCS: 36415; 71045; 71046; 71260; 74177; 78452; 80048; 80053; 80061; 81001; 83605; 83690; 84443; 84484; 85025; 85651; 86140; 87040; 87631; 93005; 93017; 96372; 99284; 99285; A9270; A9500; G0378; J1650; Q9967; U0004; 0202U; 83721; 87086

== ENCOUNTER 2022-01-08 08:00 | Outpatient (CLI) | payer MEDICARE, OTHER ==
--- NOTE | 2022-01-08 11:45 | XRAY Report ---
PROCEDURE: Chest 2 View X-Ray INDICATIONS: ACUTE COUGH TECHNIQUE: 2 view(s) of the chest. COMPARISON: March 12, 2021. FINDINGS: SUPPORT DEVICES: None. LUNGS/PLEURA: Mildly coarsened interstitial markings. No focal consolidation, pleural effusion or spa ce-occupying pneumothorax. MEDIASTINUM: The cardiomediastinal silhouette is within normal limits. BONES/SOFT TISSUES: No acute abnormality. IMPRESSION: 1.No acute cardiopulmonary abnormality. Reviewed by: Earl Beltran MD on 01/08/2022 11:44 AM [facility] Approved by: Earl Beltran MD on 01/08/2022 11:44 AM [facility] Station ID: [id number]
== END 2022-01-08 23:59 | disposition home or self-care (01) ==
LOC: DI.S 08:00
PROVIDERS: ATTEND Registered Nurse
DX: R05.1 Acute cough (principal); Z87.01 Personal history of pneumonia (recurrent)

== ENCOUNTER 2024-03-19 08:00 | Outpatient (CLI) | payer MEDICARE, OTHER ==
--- NOTE | 2024-03-19 16:39 | XRAY Report ---
PROCEDURE: Chest 2V INDICATIONS: RIGHT CHEST PAIN TECHNIQUE: 2 views of the chest were acquired. COMPARISON: 03/10/2022. FINDINGS: Surgical changes and devices: None. Lungs and pleura: No pleural effusions or pneumothorax. Lungs are clear. Mediastinum: Mediastinal contours appear normal. Heart size is normal. Bones and chest wall: No suspicious bony lesions. Overlying soft tissues appear unremarkable. IMPRESSION: No acute cardiopulmonary process. Reviewed by: Ian Scott MD on 03/19/2024 4:38 PM PDT Approved by: Ian Scott MD on 03/19/2024 4:38 PM PDT Station ID: [id number]
== END 2024-03-19 23:59 | disposition home or self-care (01) ==
LOC: DI.S 08:00
PROVIDERS: ATTEND Registered Nurse
DX: R07.89 Other chest pain (principal)